=== PATIENT | male | born 1960 | race Hispanic/Latino ===

== ENCOUNTER 2019-12-13 18:55 | Emergency (ER) | payer OTHER ==
[2019-12-13 19:43] LABS: APPEARANCE,URINE Cloudy (CLEAR); BILIRUBIN,URINE Negative (NEGATIVE); COLOR,URINE Yellow (YELLOW); GLUCOSE, URINE (UA) Negative (NEGATIVE); KETONES,URINE Negative (NEGATIVE); LEUKOCYTE ESTERASE ,URINE Trace (NEGATIVE); NITRATE,URINE Negative (NEGATIVE); OCCULT BLOOD,URINE Large (NEGATIVE); PROTEIN,URINE POS 2+ mg/dL (NEGATIVE)
[2019-12-13 19:53] LABS: BACTERIA,URINE Few /HPF (None Seen); RBC,URINE 51-100 /HPF (0-1); SQUAMOUS EPITHELIAL CELL,UR None Seen /HPF (0-2)
[2019-12-13 19:54] LABS: URIC ACID CRYSTALS,URINE Many /LPF (None Seen)
[2019-12-13] MEDS ORDERED: ONDANSETRON HCL 4 MG/2 ML VIAL ONE (19:54)
[2019-12-13 19:55] LABS: BASOPHILS % (AUTO) 0.3 % (0.0-5.0); HEMATOCRIT 47.5 % (42-54); LYMPHOCYTES % (AUTO) 7.5 % (21.0-51.0); MEAN CORPUSCULAR HEMOGLOBIN 29.4 pg (27.0-33.0); MEAN CORPUSCULAR HGB CONC 33.3 g/dL (32.0-36.0); MEAN CORPUSCULAR VOLUME 88.5 fL (79-99); MONOCYTES % (AUTO) 1.2 % (3.0-13.0); NEUTROPHILS % (AUTO) 90.7 % (40.0-77.0); PLATELET COUNT (AUTO) 241 K/uL (130-400); RED BLOOD CELL COUNT(AUTO) 5.37 MIL/uL (4.50-6.20); RED CELL DISTRIBUTION WIDTH 12.9 % (11.0-15.5); WHITE BLOOD COUNT (AUTO) 14.3 K/uL (4.8-10.8)
[2019-12-13] MEDS ORDERED: MORPHINE SULFATE 2 MG/ML 1ML SYG ONE (19:55)
[2019-12-13 20:06] LABS: CREATININE 1.8 mg/dL (0.5-1.5); POTASSIUM 4.2 mmol/L (3.5-5.1)
[2019-12-13 20:11] LABS: ALBUMIN 4.1 g/dL (3.5-5.0); BILIRUBIN,TOTAL 0.6 mg/dL (0.2-1.0); TOTAL PROTEIN, SERUM 8.5 g/dL (6.0-8.3)
[2019-12-13] MEDS ORDERED: TAMSULOSIN HCL 0.4 MG CAP.ER.24H ONE (22:53)
== END 2019-12-13 23:23 | disposition home or self-care (01) ==
LOC: EDH 18:55
DX: N20.1 Calculus of ureter (principal)
CPT/HCPCS: 36415; 74176; 76770; 80053; 81001; 85025; 96374; 96375; 99285; J2405

== ENCOUNTER 2020-02-24 15:38 | Inpatient (IN) | payer BC, OTHER ==
[~2020-02-24] VITALS: Ht 180.3 cm; Wt 131.5 kg
[2020-02-24 17:14] LABS: BASOPHILS % (AUTO) 0.2 % (0.0-5.0); EOSINOPHILS % (AUTO) 0.1 % (0.0-8.0); HEMATOCRIT 38.3 % (42-54); LYMPHOCYTES % (AUTO) 6.6 % (21.0-51.0); MEAN CORPUSCULAR HEMOGLOBIN 28.9 pg (27.0-33.0); MEAN CORPUSCULAR HGB CONC 33.2 g/dL (32.0-36.0); MEAN CORPUSCULAR VOLUME 87.2 fL (79-99); MONOCYTES % (AUTO) 2.7 % (3.0-13.0); NEUTROPHILS % (AUTO) 89.4 % (40.0-77.0); PLATELET COUNT (AUTO) 240 K/uL (130-400); RED BLOOD CELL COUNT(AUTO) 4.39 MIL/uL (4.50-6.20); RED CELL DISTRIBUTION WIDTH 13.6 % (11.0-15.5); WHITE BLOOD COUNT (AUTO) 15.1 K/uL (4.8-10.8)
[2020-02-24 17:36] LABS: CREATININE 10.1 mg/dL (0.5-1.5)
[2020-02-24] MEDS ORDERED: KAYEXALATE 15GM/60ML ONE ×2 (17:52→21:27)
[2020-02-24 18:40] LABS: ABG BASE EXCESS -11.9 mmol/L (-2.0-3.0); ABG HCO3 13.1 mmol/L (21.0-28.0); ABG OXYGEN SATURATION 97.1 % (95.0-99.0); ABG PCO2 28 mmHg (35-48)
[2020-02-24] MEDS ORDERED: ACETAMINOPHEN 325 MG TAB PO PRN (18:45)
[2020-02-24] MEDS ORDERED: ONDANSETRON 4MG INJ IV PRN (18:45)
[2020-02-24] MEDS ORDERED: 0.9%NACL 1000ML 1,000 ML IV SCH (18:45)
[2020-02-24] MEDS ORDERED: 0.9%NACL 50ML 50 ML IV ONE (18:57)
[2020-02-24 21:05] LABS: HEMOGLOBIN A1C 6.3 % (4.0-6.0)
[2020-02-24 21:14] LABS: CREATININE 10.3 mg/dL (0.5-1.5); POTASSIUM 6.5 mmol/L (3.5-5.1)
[2020-02-24 21:23] LABS: THYROID STIMULATING HORMONE 0.91 uIU/mL (0.36-3.74); URIC ACID 12.6 mg/dL (2.6-7.2)
[2020-02-24] MEDS ORDERED: DEXTROSE 50%-WATER 50 ML DISP.SYRIN IV ONE (21:27)
[2020-02-24] MEDS ORDERED: INSULIN HUMULIN R 100 UNIT/ML 3ML ONE (21:28)
[2020-02-24] MEDS ORDERED: KAYEXALATE 15GM/60ML PO SCH (21:30)
[2020-02-25] VITALS (11 sets, daily range): BP systolic 101–137; BP diastolic 60–75
[2020-02-25 02:24] LABS: POTASSIUM 5.8 mmol/L (3.5-5.1)
[2020-02-25 02:29] LABS: CREATININE 10.6 mg/dL (0.5-1.5)
[2020-02-25 03:35] LABS: BILIRUBIN,URINE LARGE (NEGATIVE); GLUCOSE, URINE (UA) 100 mg/dL (NEGATIVE); KETONES,URINE 15 mg/dL (NEGATIVE); LEUKOCYTE ESTERASE ,URINE LARGE (NEGATIVE); NITRATE,URINE POSITIVE (NEGATIVE); OCCULT BLOOD,URINE LARGE (NEGATIVE); PROTEIN,URINE >=300 mg/dL (NEGATIVE)
[2020-02-25 03:37] LABS: APPEARANCE,URINE TURBID (CLEAR); COLOR,URINE RED (YELLOW)
[2020-02-25 03:46] LABS: CREATININE,URINE RANDOM 78 mg/dL (30-135); SODIUM,URINE RANDOM 94 mmol/l (40-220)
[2020-02-25 03:47] LABS: RBC,URINE TNTC /HPF (0-1); WBC,URINE >100 /HPF (0-1)
[2020-02-25 03:48] LABS: BACTERIA,URINE Moderate /HPF (None Seen); SQUAMOUS EPITHELIAL CELL,UR None Seen /HPF (0-2)
[2020-02-25 04:04] LABS: PROTEIN,URINE RANDOM 639.4 mg/dL (0-11.9)
[2020-02-25] MEDS ORDERED: FAMOTIDINE 20MG VIAL IV ONE (08:04)
[2020-02-25 08:42] LABS: POTASSIUM 5.7 mmol/L (3.5-5.1)
[2020-02-25 08:46] LABS: CREATININE 10.9 mg/dL (0.5-1.5)
[2020-02-25] MEDS: FAMOTIDINE 20MG VIAL IV SCH (09:00)
[2020-02-25] MEDS: TAMSULOSIN HCL 0.4 MG CAP.ER.24H PO SCH (09:00)
[2020-02-25] MEDS ORDERED: TAMSULOSIN HCL 0.4 MG CAP.ER.24H ONE (09:50)
[2020-02-25] MEDS: CEFTRIAXONE 1G VIAL IVP SCH ×2 (12:00→23:50)
[2020-02-25] MEDS ORDERED: CEFTRIAXONE 1G VIAL ONE (13:50)
[2020-02-25] MEDS ORDERED: 0.9%NACL 1000ML 1,000 ML IV ONE (13:52)
[2020-02-25] MEDS: NIFEDIPINE 10 MG CAP PO SCH ×2 (14:00→21:11)
[2020-02-25] MEDS ORDERED: NIFEDIPINE 10 MG CAP ONE (14:10)
[2020-02-25 14:37] LABS: POTASSIUM 5.4 mmol/L (3.5-5.1)
[2020-02-25 14:53] LABS: CREATININE 10.8 mg/dL (0.5-1.5)
[2020-02-25] MEDS ORDERED: SODIUM BICARB 50MEQ 50ML VIAL 50 ML ONE (19:08)
[2020-02-25] MEDS ORDERED: FENTANYL CITRATE PF 50 MCG/1 ML 2ML VIAL ONE (19:08)
[2020-02-25] MEDS ORDERED: LIDOCAINE HCL 400MG/20ML VIAL ONE (19:08)
[2020-02-25] MEDS ORDERED: MIDAZOLAM HCL 1 MG/ML 2ML VIAL ONE (19:08)
[2020-02-25 19:14] LABS: INR 1.21 (0.85-1.15); PROTHROMBIN TIME 12.7 SEC (9.6-11.6)
[2020-02-25 19:15] LABS: PARTIAL THROMBOPLASTIN TIME 28.5 SEC (26.3-35.5)
[2020-02-25] MEDS ORDERED: IODIXANOL 320 MG/ML 100 ML VIAL ONE (19:16)
[2020-02-25 19:23] LABS: POTASSIUM 5.2 mmol/L (3.5-5.1)
[2020-02-25 19:24] LABS: CREATININE 10.4 mg/dL (0.5-1.5)
[2020-02-25] MEDS ORDERED: TAMS-1 PO (20:07)
[2020-02-25] MEDS ORDERED: [UNRECOGNIZED DRUG - OTHER] PO (20:07)
[2020-02-25] MEDS ORDERED: KETO10TA2 PO (20:07)
[2020-02-25] MEDS ORDERED: BOWEL DETOX PO (20:07)
[2020-02-25] MEDS ORDERED: LEVO5TAB29 PO (20:07)
[2020-02-25] MEDS ORDERED: ASCO100031 PO (20:07)
[2020-02-25] MEDS ORDERED: [UNRECOGNIZED DRUG - OTHER] (20:07)
[2020-02-26 03:49] VITALS: BP 133/70
[2020-02-26 05:17] LABS: BASOPHILS % (AUTO) 0.3 % (0.0-5.0); HEMATOCRIT 38.3 % (42-54); LYMPHOCYTES % (AUTO) 14.7 % (21.0-51.0); MEAN CORPUSCULAR HEMOGLOBIN 28.9 pg (27.0-33.0); MEAN CORPUSCULAR HGB CONC 33.4 g/dL (32.0-36.0); MEAN CORPUSCULAR VOLUME 86.5 fL (79-99); MONOCYTES % (AUTO) 10.2 % (3.0-13.0); NEUTROPHILS % (AUTO) 72.8 % (40.0-77.0); PLATELET COUNT (AUTO) 263 K/uL (130-400); RED BLOOD CELL COUNT(AUTO) 4.43 MIL/uL (4.50-6.20); RED CELL DISTRIBUTION WIDTH 13.7 % (11.0-15.5); WHITE BLOOD COUNT (AUTO) 11.9 K/uL (4.8-10.8)
[2020-02-26 05:32] LABS: CREATININE 5.1 mg/dL (0.5-1.5); POTASSIUM 4.9 mmol/L (3.5-5.1)
[2020-02-26 05:33] LABS: INR 1.23 (0.85-1.15); PROTHROMBIN TIME 12.9 SEC (9.6-11.6)
[2020-02-26 05:34] LABS: PARTIAL THROMBOPLASTIN TIME 25.6 SEC (26.3-35.5)
[2020-02-26 07:37] VITALS: BP 122/74
[2020-02-26] MEDS: FAMOTIDINE 20MG VIAL IV SCH (10:04)
[2020-02-26] MEDS: TAMSULOSIN HCL 0.4 MG CAP.ER.24H PO SCH (10:04)
[2020-02-26] MEDS: NIFEDIPINE 10 MG CAP PO SCH ×3 (10:04→20:26)
[2020-02-26 11:05] VITALS: BP 126/81
[2020-02-26] MEDS: CEFTRIAXONE 1G VIAL IVP SCH ×2 (12:48→23:04)
[2020-02-26 14:04] LABS: CREATININE 3.1 mg/dL (0.5-1.5); POTASSIUM 4.7 mmol/L (3.5-5.1)
[2020-02-26 16:29] VITALS: BP 118/66
[2020-02-26 19:58] VITALS: BP 108/64
[2020-02-26 23:09] VITALS: BP 102/69
[2020-02-27 03:01] VITALS: BP 120/76
[2020-02-27 04:38] LABS: BASOPHILS % (AUTO) 0.5 % (0.0-5.0); EOSINOPHILS % (AUTO) 3.2 % (0.0-8.0); HEMATOCRIT 41.2 % (42-54); LYMPHOCYTES % (AUTO) 29.2 % (21.0-51.0); MEAN CORPUSCULAR HEMOGLOBIN 29.6 pg (27.0-33.0); MEAN CORPUSCULAR HGB CONC 33.3 g/dL (32.0-36.0); MONOCYTES % (AUTO) 10.9 % (3.0-13.0); NEUTROPHILS % (AUTO) 54.5 % (40.0-77.0); PLATELET COUNT (AUTO) 296 K/uL (130-400); RED BLOOD CELL COUNT(AUTO) 4.63 MIL/uL (4.50-6.20); RED CELL DISTRIBUTION WIDTH 14.1 % (11.0-15.5); WHITE BLOOD COUNT (AUTO) 11.5 K/uL (4.8-10.8)
[2020-02-27 04:44] LABS: CREATININE 1.9 mg/dL (0.5-1.5); POTASSIUM 4.7 mmol/L (3.5-5.1)
[2020-02-27 08:24] VITALS: BP 122/74
[2020-02-27] MEDS: TAMSULOSIN HCL 0.4 MG CAP.ER.24H PO SCH (09:01)
[2020-02-27] MEDS: FAMOTIDINE 20MG VIAL IV SCH (09:10)
[2020-02-27] MEDS: NIFEDIPINE 10 MG CAP PO SCH ×3 (09:10→21:20)
[2020-02-27 11:20] VITALS: BP 114/64
[2020-02-27] MEDS: CEFTRIAXONE 1G VIAL IVP SCH ×2 (12:00→23:24)
[2020-02-27 16:26] VITALS: BP 135/88
[2020-02-27 20:00] VITALS: BP 117/82
[2020-02-28] VITALS (15 sets, daily range): BP systolic 103–134; BP diastolic 63–84
[2020-02-28 04:38] LABS: BASOPHILS % (AUTO) 0.6 % (0.0-5.0); EOSINOPHILS % (AUTO) 4.2 % (0.0-8.0); HEMATOCRIT 42.1 % (42-54); LYMPHOCYTES % (AUTO) 25.2 % (21.0-51.0); MEAN CORPUSCULAR HEMOGLOBIN 29.3 pg (27.0-33.0); MEAN CORPUSCULAR VOLUME 88.8 fL (79-99); MONOCYTES % (AUTO) 10.1 % (3.0-13.0); NEUTROPHILS % (AUTO) 58.3 % (40.0-77.0); PLATELET COUNT (AUTO) 318 K/uL (130-400); RED BLOOD CELL COUNT(AUTO) 4.74 MIL/uL (4.50-6.20); RED CELL DISTRIBUTION WIDTH 13.5 % (11.0-15.5); WHITE BLOOD COUNT (AUTO) 12.5 K/uL (4.8-10.8)
[2020-02-28 05:00] LABS: CREATININE 1.5 mg/dL (0.5-1.5); POTASSIUM 4.3 mmol/L (3.5-5.1)
[2020-02-28] MEDS: NIFEDIPINE 10 MG CAP PO SCH ×3 (09:23→21:37)
[2020-02-28] MEDS: FAMOTIDINE 20MG VIAL IV SCH (09:23)
[2020-02-28] MEDS: TAMSULOSIN HCL 0.4 MG CAP.ER.24H PO SCH (09:23)
[2020-02-28] MEDS: CEFTRIAXONE 1G VIAL IVP SCH (14:33)
[2020-02-28] MEDS ORDERED: MIDAZOLAM HCL 1 MG/ML 2ML VIAL ONE (16:08)
[2020-02-28] MEDS ORDERED: FENTANYL CITRATE PF 50 MCG/1 ML 2ML VIAL ONE (16:08)
[2020-02-28] MEDS ORDERED: SODIUM BICARB 50MEQ 50ML VIAL 50 ML ONE (16:08)
[2020-02-28] MEDS ORDERED: LIDOCAINE HCL 400MG/20ML VIAL ONE (16:08)
[2020-02-28] MEDS ORDERED: IODIXANOL 320 MG/ML 100 ML VIAL ONE (16:18)
[2020-02-29 04:00] VITALS: BP 140/76
[2020-02-29 05:27] LABS: BASOPHILS % (AUTO) 0.6 % (0.0-5.0); EOSINOPHILS % (AUTO) 4.4 % (0.0-8.0); LYMPHOCYTES % (AUTO) 19.5 % (21.0-51.0); MEAN CORPUSCULAR HEMOGLOBIN 29.4 pg (27.0-33.0); MEAN CORPUSCULAR HGB CONC 33.3 g/dL (32.0-36.0); MEAN CORPUSCULAR VOLUME 88.1 fL (79-99); MONOCYTES % (AUTO) 7.8 % (3.0-13.0); NEUTROPHILS % (AUTO) 66.2 % (40.0-77.0); PLATELET COUNT (AUTO) 330 K/uL (130-400); RED BLOOD CELL COUNT(AUTO) 4.77 MIL/uL (4.50-6.20); RED CELL DISTRIBUTION WIDTH 13.3 % (11.0-15.5); WHITE BLOOD COUNT (AUTO) 14.2 K/uL (4.8-10.8)
[2020-02-29 05:44] LABS: CREATININE 1.4 mg/dL (0.5-1.5); POTASSIUM 4.3 mmol/L (3.5-5.1)
[2020-02-29 08:00] VITALS: BP 117/77
[2020-02-29] MEDS: TAMSULOSIN HCL 0.4 MG CAP.ER.24H PO SCH (10:36)
[2020-02-29] MEDS: NIFEDIPINE 10 MG CAP PO SCH ×3 (10:36→21:03)
[2020-02-29] MEDS: FAMOTIDINE 20MG VIAL IV SCH (10:37)
[2020-02-29 12:00] VITALS: BP 129/80
[2020-02-29] MEDS: CEFTRIAXONE 1G VIAL IVP SCH ×2 (12:00)
[2020-02-29 16:12] VITALS: BP 134/74
[2020-02-29 20:00] VITALS: BP 136/76
[2020-02-29] MEDS: ENOXAPARIN SODIUM 40 MG/0.4 ML SYRINGE SQ SCH (21:03)
[2020-02-29] MEDS ORDERED: HYDROMORPHONE 4MG/ML 1ML VIAL IVP PRN (21:30)
[2020-02-29] MEDS ORDERED: HYDROMORPHONE 1 MG INJ ONE (21:30)
[2020-03-01] VITALS: BP 135/81
[2020-03-01] MEDS: CEFTRIAXONE 1G VIAL IVP SCH ×3 (00:31→23:10)
[2020-03-01] MEDS: LACTULOSE 20 GM/30 ML UDCUP PO PRN ×2 (01:10→21:32)
[2020-03-01] MEDS: ACETAMINOPHEN 325 MG TAB PO PRN (02:16)
[2020-03-01] MEDS ORDERED: HYDROMORPHONE 1 MG INJ ONE (03:29)
[2020-03-01 04:00] VITALS: BP 135/79
[2020-03-01 05:15] LABS: BASOPHILS % (AUTO) 0.4 % (0.0-5.0); EOSINOPHILS % (AUTO) 3.7 % (0.0-8.0); LYMPHOCYTES % (AUTO) 13.3 % (21.0-51.0); MEAN CORPUSCULAR HEMOGLOBIN 28.9 pg (27.0-33.0); MEAN CORPUSCULAR VOLUME 87.4 fL (79-99); NEUTROPHILS % (AUTO) 74.1 % (40.0-77.0); PLATELET COUNT (AUTO) 299 K/uL (130-400); RED BLOOD CELL COUNT(AUTO) 4.92 MIL/uL (4.50-6.20); RED CELL DISTRIBUTION WIDTH 13.2 % (11.0-15.5); WHITE BLOOD COUNT (AUTO) 16.2 K/uL (4.8-10.8)
[2020-03-01 05:49] LABS: CREATININE 1.7 mg/dL (0.5-1.5); POTASSIUM 4.3 mmol/L (3.5-5.1)
[2020-03-01 08:04] VITALS: BP 157/78
[2020-03-01] MEDS: TAMSULOSIN HCL 0.4 MG CAP.ER.24H PO SCH (09:26)
[2020-03-01] MEDS: FAMOTIDINE 20MG VIAL IV SCH (09:27)
[2020-03-01] MEDS: ENOXAPARIN SODIUM 40 MG/0.4 ML SYRINGE SQ SCH (09:27)
[2020-03-01] MEDS: NIFEDIPINE 10 MG CAP PO SCH ×3 (09:27→21:32)
[2020-03-01 12:00] VITALS: BP 154/88
[2020-03-01 16:00] VITALS: BP 138/82
[2020-03-01 20:00] VITALS: BP 125/83
[2020-03-01] MEDS: HYDROMORPHONE 2 MG VIAL (2MG/ML) IVP PRN (23:10)
[2020-03-02] VITALS: BP 131/87
[2020-03-02 04:00] VITALS: BP 156/87
[2020-03-02 05:24] LABS: BASOPHILS % (AUTO) 0.3 % (0.0-5.0); EOSINOPHILS % (AUTO) 2.9 % (0.0-8.0); HEMATOCRIT 39.1 % (42-54); LYMPHOCYTES % (AUTO) 13.8 % (21.0-51.0); MEAN CORPUSCULAR HEMOGLOBIN 28.7 pg (27.0-33.0); MEAN CORPUSCULAR VOLUME 87.1 fL (79-99); MONOCYTES % (AUTO) 9.3 % (3.0-13.0); NEUTROPHILS % (AUTO) 72.7 % (40.0-77.0); PLATELET COUNT (AUTO) 261 K/uL (130-400); RED BLOOD CELL COUNT(AUTO) 4.49 MIL/uL (4.50-6.20); RED CELL DISTRIBUTION WIDTH 13.2 % (11.0-15.5); WHITE BLOOD COUNT (AUTO) 14.3 K/uL (4.8-10.8)
[2020-03-02] MEDS: LACTULOSE 20 GM/30 ML UDCUP PO PRN (05:40)
[2020-03-02 05:57] LABS: CREATININE 1.9 mg/dL (0.5-1.5); POTASSIUM 3.7 mmol/L (3.5-5.1)
[2020-03-02 08:00] VITALS: BP 129/79
[2020-03-02] MEDS: NIFEDIPINE 10 MG CAP PO SCH ×2 (09:28→20:59)
[2020-03-02] MEDS: FAMOTIDINE 20MG VIAL IV SCH (09:28)
[2020-03-02] MEDS: TAMSULOSIN HCL 0.4 MG CAP.ER.24H PO SCH (09:28)
[2020-03-02] MEDS: ENOXAPARIN SODIUM 40 MG/0.4 ML SYRINGE SQ SCH (09:29)
[2020-03-02 12:00] VITALS: BP 119/60
[2020-03-02] MEDS: CEFTRIAXONE 1G VIAL IVP SCH (12:20)
[2020-03-02 16:00] VITALS: BP 110/74
[2020-03-02 20:00] VITALS: BP 124/73
[2020-03-03] VITALS (19 sets, daily range): BP systolic 106–165; BP diastolic 66–91
[2020-03-03] MEDS: CEFTRIAXONE 1G VIAL IVP SCH ×2 (01:25→11:59)
[2020-03-03 05:22] LABS: BASOPHILS % (AUTO) 0.7 % (0.0-5.0); EOSINOPHILS % (AUTO) 3.5 % (0.0-8.0); HEMATOCRIT 41.2 % (42-54); LYMPHOCYTES % (AUTO) 25.2 % (21.0-51.0); MEAN CORPUSCULAR HEMOGLOBIN 29.1 pg (27.0-33.0); MEAN CORPUSCULAR VOLUME 88.2 fL (79-99); MONOCYTES % (AUTO) 9.1 % (3.0-13.0); NEUTROPHILS % (AUTO) 60.5 % (40.0-77.0); PLATELET COUNT (AUTO) 291 K/uL (130-400); RED BLOOD CELL COUNT(AUTO) 4.67 MIL/uL (4.50-6.20); RED CELL DISTRIBUTION WIDTH 13.1 % (11.0-15.5); WHITE BLOOD COUNT (AUTO) 11.8 K/uL (4.8-10.8)
[2020-03-03 05:45] LABS: ALBUMIN 3.2 g/dL (3.5-5.0); BILIRUBIN,TOTAL 0.4 mg/dL (0.2-1.0); CREATININE 1.4 mg/dL (0.5-1.5); POTASSIUM 3.9 mmol/L (3.5-5.1); TOTAL PROTEIN, SERUM 7.6 g/dL (6.0-8.3)
[2020-03-03] MEDS ORDERED: IOHEXOL-350 50ML VIAL IV ONE (08:14)
[2020-03-03] MEDS ORDERED: LACTATED RINGERS 1000ML 1,000 ML IV ONE (08:43)
[2020-03-03] MEDS ORDERED: SUCCINYLCHOLINE 200MG/10ML SYR ONE (08:46)
[2020-03-03] MEDS ORDERED: PROPOFOL 10 MG/ML 20ML VIAL IV ONE (08:46)
[2020-03-03] MEDS ORDERED: ONDANSETRON 4MG INJ ONE (08:46)
[2020-03-03] MEDS ORDERED: DEXAMETHASONE SOD PHOSPHATE 10MG/ML 1ML VIAL ONE (08:46)
[2020-03-03] MEDS ORDERED: MIDAZOLAM HCL 1 MG/ML 2ML VIAL ONE (08:46)
[2020-03-03] MEDS ORDERED: LIDOCAINE PF 100MG/5ML (2%) SYRINGE 5ML ONE (08:46)
[2020-03-03] MEDS ORDERED: FENTANYL CITRATE PF 50 MCG/1 ML 2ML VIAL ONE (08:47)
[2020-03-03] MEDS ORDERED: ROCURONIUM 10MG/1ML SYR 10 MG/ML ML ONE (08:59)
[2020-03-03] MEDS: ENOXAPARIN SODIUM 40 MG/0.4 ML SYRINGE SQ SCH (09:00)
[2020-03-03] MEDS: NIFEDIPINE 10 MG CAP PO SCH ×3 (09:00→20:03)
[2020-03-03] MEDS ORDERED: GLYCOPYRROLATE 1 MG/5 ML SYRINGE ONE (09:57)
[2020-03-03] MEDS ORDERED: NEOSTIGMINE 5MG/5ML SYR IV ONE (09:57)
[2020-03-03] MEDS ORDERED: MEPERIDINE-PF 25 MG/ML SYG ONE (10:27)
[2020-03-03] MEDS: FAMOTIDINE 20MG VIAL IV SCH (11:58)
[2020-03-03] MEDS: TAMSULOSIN HCL 0.4 MG CAP.ER.24H PO SCH (11:58)
[2020-03-03] MEDS: ACETAMINOPHEN 325 MG TAB PO PRN (12:01)
[2020-03-03] MEDS: 0.9%NACL 1000ML 1,000 ML IV SCH ×4 (12:09→22:15)
[2020-03-03] MEDS: CITRIC ACID/SODIUM CITRATE 30 ML UDCUP PO SCH ×2 (13:26→20:03)
[2020-03-04] MEDS: CEFTRIAXONE 1G VIAL IVP SCH ×2 (00:06→12:29)
[2020-03-04 03:42] VITALS: BP 132/70
[2020-03-04 05:10] LABS: BASOPHILS % (AUTO) 0.6 % (0.0-5.0); EOSINOPHILS % (AUTO) 2.9 % (0.0-8.0); HEMATOCRIT 37.1 % (42-54); LYMPHOCYTES % (AUTO) 23.2 % (21.0-51.0); MEAN CORPUSCULAR HGB CONC 32.9 g/dL (32.0-36.0); MEAN CORPUSCULAR VOLUME 88.3 fL (79-99); MONOCYTES % (AUTO) 7.5 % (3.0-13.0); NEUTROPHILS % (AUTO) 65.1 % (40.0-77.0); PLATELET COUNT (AUTO) 258 K/uL (130-400); RED CELL DISTRIBUTION WIDTH 13.2 % (11.0-15.5); WHITE BLOOD COUNT (AUTO) 11.6 K/uL (4.8-10.8)
[2020-03-04 05:25] LABS: CREATININE 1.4 mg/dL (0.5-1.5); POTASSIUM 3.5 mmol/L (3.5-5.1)
[2020-03-04] MEDS: 0.9%NACL 1000ML 1,000 ML IV SCH ×2 (07:45→08:15)
[2020-03-04] MEDS: CITRIC ACID/SODIUM CITRATE 30 ML UDCUP PO SCH ×2 (08:35→13:28)
[2020-03-04] MEDS: NIFEDIPINE 10 MG CAP PO SCH ×2 (08:36→13:28)
[2020-03-04] MEDS: TAMSULOSIN HCL 0.4 MG CAP.ER.24H PO SCH (08:36)
[2020-03-04] MEDS: FAMOTIDINE 20MG VIAL IV SCH (08:36)
[2020-03-04] MEDS: ENOXAPARIN SODIUM 40 MG/0.4 ML SYRINGE SQ SCH (08:38)
[2020-03-04 08:53] VITALS: BP 130/68
[2020-03-04 11:53] VITALS: BP 119/71
[2020-03-04] MEDS: HYDROMORPHONE 2 MG VIAL (2MG/ML) IVP PRN (13:27)
[2020-03-04] MEDS: LACTULOSE 20 GM/30 ML UDCUP PO PRN (13:35)
[2020-03-23] MEDS ORDERED: SODI100G3 MC (14:03)
[2020-03-23] MEDS ORDERED: TAMS-1 PO (14:03)
== END 2020-03-04 16:45 | disposition home or self-care (01) | DRG 660 ==
LOC: EDH 15:38 → EDHIP 18:41 → 4CH 02-25 14:50
PROVIDERS: ADMIT Internal Medicine; ATTEND Internal Medicine
PROC: 0TP5X0Z Removal of Drainage Device from Kidney, External Approach (ICD-10-PCS; 2020-03-03)
PROC: 0TC78ZZ Extirpation of Matter from Left Ureter, Via Natural or Artificial Opening Endoscopic (ICD-10-PCS; principal; 2020-03-03 09:01)
PROC: 0T778DZ Dilation of Left Ureter with Intraluminal Device, Via Natural or Artificial Opening Endoscopic (ICD-10-PCS; 2020-03-03 09:01)
PROC: BT141ZZ Fluoroscopy of Kidneys, Ureters and Bladder using Low Osmolar Contrast (ICD-10-PCS; 2020-03-03 09:01)
DX: N13.6 Pyonephrosis (principal); Z68.41 Body mass index [BMI] 40.0-44.9, adult; E87.2 Acidosis; N17.9 Acute kidney failure, unspecified; E11.22 Type 2 diabetes mellitus with diabetic chronic kidney disease; E87.8 Other disorders of electrolyte and fluid balance, not elsewhere classified; Z20.822 Contact with and (suspected) exposure to COVID-19; Z87.442 Personal history of urinary calculi; E66.01 Morbid (severe) obesity due to excess calories; Z87.891 Personal history of nicotine dependence; R33.9 Retention of urine, unspecified; E87.5 Hyperkalemia; N18.9 Chronic kidney disease, unspecified; I12.9 Hypertensive chronic kidney disease with stage 1 through stage 4 chronic kidney disease, or unspecified chronic kidney disease; N41.9 Inflammatory disease of prostate, unspecified; R53.81 Other malaise
CPT/HCPCS: 10030; 36415; 36600; 50432; 74176; 74420; 76770; 80048; 80053; 80061; 81001; 82360; 82570; 82803; 82948; 83036; 83605; 84145; 84156; 84300; 84443; 84550; 85025; 85610; 85651; 85730; 86038; 86160; 86162; 86215; 86235; 86431; 87088; 87205; 87426; 97039; 99156; 99157; A4344; C1729; C1751; C1758; C1769; C1894; C2617; G0378; J0330; J0696; J1100; J1170; J1644; J1650; J1815; J2001; J2175; J2250; J2405; J2704; J2710; J3010; J3490; J7030; J7070; J7120; Q9967; U0003

== ENCOUNTER 2020-03-24 07:50 | Day surgery (SDC) | payer BC ==
[2020-03-20 10:32] LABS: HEMATOCRIT 41.6 % (42-54); MEAN CORPUSCULAR HEMOGLOBIN 29.2 pg (27.0-33.0); MEAN CORPUSCULAR HGB CONC 32.7 g/dL (32.0-36.0); MEAN CORPUSCULAR VOLUME 89.3 fL (79-99); RED BLOOD CELL COUNT(AUTO) 4.66 MIL/uL (4.50-6.20); RED CELL DISTRIBUTION WIDTH 13.5 % (11.0-15.5); WHITE BLOOD COUNT (AUTO) 8.5 K/uL (4.8-10.8)
[2020-03-20 10:39] LABS: APPEARANCE,URINE Cloudy (CLEAR); BILIRUBIN,URINE Negative (NEGATIVE); COLOR,URINE Orange (YELLOW); GLUCOSE, URINE (UA) Negative (NEGATIVE); KETONES,URINE Negative (NEGATIVE); LEUKOCYTE ESTERASE ,URINE Small (NEGATIVE); NITRATE,URINE Negative (NEGATIVE); OCCULT BLOOD,URINE Large (NEGATIVE); PROTEIN,URINE 300 mg/dL (NEGATIVE)
[2020-03-20 10:42] LABS: INR 1.05 (0.85-1.15); PROTHROMBIN TIME 11.4 SEC (9.6-11.6)
[2020-03-20 10:43] LABS: PARTIAL THROMBOPLASTIN TIME 28.1 SEC (26.3-35.5)
[2020-03-20 10:47] LABS: ALBUMIN 3.6 g/dL (3.5-5.0); BILIRUBIN,TOTAL 0.4 mg/dL (0.2-1.0); CREATININE 1.4 mg/dL (0.5-1.5); POTASSIUM 4.1 mmol/L (3.5-5.1); TOTAL PROTEIN, SERUM 7.4 g/dL (6.0-8.3)
[2020-03-20 10:48] LABS: RBC,URINE TNTC /HPF (0-1)
[2020-03-20 10:49] LABS: BACTERIA,URINE Rare /HPF (None Seen); SQUAMOUS EPITHELIAL CELL,UR 0-2 /HPF (0-2); URIC ACID CRYSTALS,URINE Few /LPF (None Seen)
[2020-03-24] VITALS (17 sets, daily range): BP systolic 96–142; BP diastolic 55–84
[~2020-03-24 07:50] MED LIST: ASCO100031 PO; LEVO5TAB29 PO; SODI100G3 MC; TAMS-1 PO; [UNRECOGNIZED DRUG - OTHER] PO
[2020-03-24] MEDS ORDERED: LACTATED RINGERS 1000ML 1,000 ML IV ONE (08:16)
[2020-03-24] MEDS ORDERED: IOHEXOL-350 50ML VIAL IV ONE (08:28)
[2020-03-24] MEDS: CEFAZOLIN SODIUM 1 GM VIAL IVP SCH ×2 (08:40→10:19)
[2020-03-24] MEDS ORDERED: SUCCINYLCHOLINE 200MG/10ML SYR ONE (09:21)
[2020-03-24] MEDS ORDERED: LIDOCAINE HCL MPF 1% 5ML VIAL ONE (09:21)
[2020-03-24] MEDS ORDERED: PROPOFOL 10 MG/ML 20ML VIAL IV ONE (09:21)
[2020-03-24] MEDS ORDERED: MIDAZOLAM HCL 1 MG/ML 2ML VIAL ONE (09:21)
[2020-03-24] MEDS ORDERED: ONDANSETRON 4MG INJ ONE (09:21)
[2020-03-24] MEDS ORDERED: DEXAMETHASONE SOD PHOSPHATE 10MG/ML 1ML VIAL ONE (09:21)
[2020-03-24] MEDS ORDERED: ROCURONIUM 10MG/1ML SYR 10 MG/ML ML ONE (09:22)
[2020-03-24] MEDS ORDERED: FENTANYL CITRATE PF 50 MCG/1 ML 2ML VIAL ONE (09:22)
[2020-03-24] MEDS ORDERED: EPHEDRINE SULFATE 50 MG/ML AMPULE ONE (10:50)
== END 2020-03-24 14:07 | disposition home or self-care (01) ==
LOC: DAH 07:50
PROVIDERS: ATTEND Urology
DX: N20.0 Calculus of kidney (principal); Z20.822 Contact with and (suspected) exposure to COVID-19; N40.0 Benign prostatic hyperplasia without lower urinary tract symptoms; E66.01 Morbid (severe) obesity due to excess calories; Z90.49 Acquired absence of other specified parts of digestive tract; Z79.01 Long term (current) use of anticoagulants; Z79.899 Other long term (current) drug therapy
CPT/HCPCS: 36415 ×2; 52320; 52332; 71046; 74018; 74420; 80053; 81001; 82360; 85027; 85610; 85730; 87088; 93005; A4215; A4216; A4221; A4222; A4223 ×3; A4335; A4344; A4358 ×2; A4606; A4663; A6260; C1758; C1769 ×3; C2617 ×2; C9803; J0330; J0690; J1100; J2250; J2405; J2704; J3010; J3490 ×2; J7120 ×2; Q9967; U0003

== ENCOUNTER → 2020-03-31 | Outpatient (CLI) | payer BC | END | disposition home or self-care (01) | LOC: RAH 15:27 | PROVIDERS: ATTEND Urology | DX: N20.1 Calculus of ureter (principal) | CPT/HCPCS: 74018; 76100 ==

== ENCOUNTER → 2020-04-02 | Outpatient (CLI) | payer BC | END | disposition home or self-care (01) | LOC: RAH 14:02 | PROVIDERS: ATTEND Urology | DX: D35.02 Benign neoplasm of left adrenal gland (principal); N20.0 Calculus of kidney | CPT/HCPCS: 74176 ==

== ENCOUNTER → 2020-09-29 | Outpatient (CLI) | payer BC | END | disposition home or self-care (01) | LOC: RAH 13:45 | PROVIDERS: ATTEND Urology | DX: N20.0 Calculus of kidney (principal); I25.10 Atherosclerotic heart disease of native coronary artery without angina pectoris; N32.89 Other specified disorders of bladder | CPT/HCPCS: 74176 ==

== ENCOUNTER → 2021-04-28 | Outpatient (CLI) | payer BC | END | disposition home or self-care (01) | LOC: RAH 13:57 | PROVIDERS: ATTEND Urology | DX: N32.89 Other specified disorders of bladder (principal) | CPT/HCPCS: 74176 ==

== ENCOUNTER → 2021-09-14 | Outpatient (CLI) | payer BC ==
[~2021-09-14] MED LIST changes: +ALBU18HF7 IH; +BICIT15L PO; +FLUT16H NASAL; +LEVO500T90 PO; +MAGN250T10 PO; +MONT-39 PO; -SODI100G3 MC; -[UNRECOGNIZED DRUG - OTHER] PO
== END | disposition home or self-care (01) ==
LOC: RAH 01:30
PROVIDERS: ATTEND Urology
DX: K42.9 Umbilical hernia without obstruction or gangrene (principal); N20.0 Calculus of kidney
CPT/HCPCS: 74018; 74176; 76100

== ENCOUNTER 2021-09-30 05:59 | Day surgery (SDC) | payer BC ==
[2021-09-28 15:57] LABS: BASOPHILS % (AUTO) 0.3 % (0.0-5.0); EOSINOPHILS % (AUTO) 0.1 % (0.0-8.0); HEMATOCRIT 41.7 % (42-54); MEAN CORPUSCULAR HEMOGLOBIN 29.2 pg (27.0-33.0); MEAN CORPUSCULAR HGB CONC 33.8 g/dL (32.0-36.0); MEAN CORPUSCULAR VOLUME 86.3 fL (79-99); MONOCYTES % (AUTO) 5.5 % (3.0-13.0); NEUTROPHILS % (AUTO) 82.6 % (40.0-77.0); PLATELET COUNT (AUTO) 242 K/uL (130-400); RED BLOOD CELL COUNT(AUTO) 4.83 MIL/uL (4.50-6.20); RED CELL DISTRIBUTION WIDTH 13.5 % (11.0-15.5); WHITE BLOOD COUNT (AUTO) 15.3 K/uL (4.8-10.8)
[2021-09-28 16:04] LABS: CREATININE 1.4 mg/dL (0.5-1.5)
[2021-09-28 16:07] LABS: INR 1.01 (0.85-1.15)
[~2021-09-30 05:59] MED LIST changes: +LEVO-70 PO; -LEVO500T90 PO
[2021-09-30 06:24] LABS: BASOPHILS % (AUTO) 0.7 % (0.0-5.0); EOSINOPHILS % (AUTO) 1.6 % (0.0-8.0); HEMATOCRIT 39.5 % (42-54); MEAN CORPUSCULAR HGB CONC 33.2 g/dL (32.0-36.0); MEAN CORPUSCULAR VOLUME 87.6 fL (79-99); PLATELET COUNT (AUTO) 214 K/uL (130-400); RED BLOOD CELL COUNT(AUTO) 4.51 MIL/uL (4.50-6.20); WHITE BLOOD COUNT (AUTO) 14.6 K/uL (4.8-10.8)
[2021-09-30] MEDS ORDERED: 0.9%NACL 1000ML 1,000 ML IV ONE (06:45)
[2021-09-30] MEDS ORDERED: MIDAZOLAM HCL 1 MG/ML 2ML VIAL ONE (07:25)
[2021-09-30] MEDS ORDERED: LIDOCAINE HCL 1% 20 ML VIAL ONE (07:26)
[2021-09-30] MEDS ORDERED: FENTANYL CITRATE PF 50 MCG/1 ML 2ML VIAL ONE (07:26)
[2021-09-30] MEDS ORDERED: IOHEXOL-350 50ML VIAL IV ONE (07:26)
[2021-09-30 08:12] VITALS: BP 142/72
[2021-09-30] MEDS ORDERED: ZOSYN 3.375GM +NS 50ML IV STA (08:13)
[2021-09-30] MEDS ORDERED: ZOSYN 3.375GM+NS 50ML 50 ML IV SCH (08:30)
[2021-09-30 08:40] VITALS: BP 128/76
== END 2021-09-30 09:15 | disposition home or self-care (01) ==
LOC: DAH 05:59
PROVIDERS: ATTEND Urology
DX: N20.0 Calculus of kidney (principal); E66.9 Obesity, unspecified; J06.9 Acute upper respiratory infection, unspecified; Z98.890 Other specified postprocedural states; Z79.899 Other long term (current) drug therapy; Z79.01 Long term (current) use of anticoagulants
CPT/HCPCS: 80048; 85025 ×2; 85610; 85730; 36415 ×2; 50431; 82948; J7030; J2543; J1644; Q9967; A4215; A4222; A4221; A4663; A4216; A4606; A4223 ×3; J2250; J3010

== ENCOUNTER → 2022-08-22 | Outpatient (CLI) | payer BC | END | disposition home or self-care (01) | LOC: RAH 13:03 | PROVIDERS: ATTEND Urology | DX: N20.0 Calculus of kidney (principal) | CPT/HCPCS: 74176 ==